=== PATIENT | female | born 2000 | race Caucasian/White ===

== ENCOUNTER 2022-09-30 15:43 | Emergency (ER) | payer OTHER ==
[~2022-09-30] VITALS: Ht 167.6 cm; Wt 68.0 kg
[2022-09-30] MEDS ORDERED: OSEL75CA PO (19:04)
== END 2022-09-30 19:23 | disposition home or self-care (01) ==
LOC: ER 15:43
DX: B34.9 Viral infection, unspecified (principal); Z20.822 Contact with and (suspected) exposure to COVID-19